=== PATIENT | female | born 1975 | race Two or more races ===

== ENCOUNTER 2017-07-30 08:08 | Day surgery (SDC) | payer BC ==
[2017-07-30] MEDS ORDERED: FAMOTIDINE 20 MG TAB PO ONE ×2 (08:12→08:47)
[2017-07-30] MEDS ORDERED: diphenhydrAMINE 25 MG CAP PO ONE ×3 (08:12→08:47)
[2017-07-30] MEDS ORDERED: NS 1,000 ML IV ONE (08:12)
[2017-07-30] MEDS ORDERED: ASPIRIN EC 325 MG TAB PO ONE ×3 (08:12→08:47)
[2017-07-30] MEDS ORDERED: DIAZEPAM 5 MG TAB PO ONE ×2 (08:12→08:47)
--- NOTE | 2017-07-30 08:41 | CPEKG ---
Heart Rate: 71 RR Interval: 845 P-R Interval: 184 QRSD Interval: 88 QT Interval: 400 QTC Interval: 435 P [place]: 20 QRS [place]: 17 T Wave [place]: 18 EKG Severity - NORMAL ECG - EKG Impression: SINUS RHYTHM Electronically Signed By: Polo Mendoza 30-Jul-2017 10:36:31
[2017-07-30] MEDS ORDERED: DIAZEPAM 5 MG TAB ONE (08:43)
[2017-07-30] MEDS ORDERED: FAMOTIDINE 20 MG TAB ONE (08:43)
[2017-07-30] MEDS ORDERED: TEMAZEPAM 15 MG CAP PO PRN (08:47)
[2017-07-30] MEDS ORDERED: ACETAMINOPHEN 325 MG TAB PO PRN (08:47)
[2017-07-30] MEDS ORDERED: NITROGLYCERIN 0.4 MG BTL SL PRN ×2 (08:47→10:36)
--- NOTE | 2017-07-30 08:47 | PDHPUP ---
History & Physical Update H&P update statement: This history and physical update is based on an assessment of the patient which was completed after admission or registration (within 24 hours), but prior to the surgery/procedure. H&P changes: No changed noted.
--- NOTE | 2017-07-30 08:49 | PDPROPOC ---
Sedation Plan of Care Sedation Plan of Care: vital signs stable, mental status noted, patient educated of risks, benefits, alternatives, patient can tolerate sedation ASA Classification: ASA 1 Planned drugs: fentanyl, midazolam Mallampati Score: Class 2 Mallampati Reference Image: Patient passed 3-3-2 rule?: Yes
[2017-07-30 08:54] LABS: % IMMATURE GRANULYOCYTES 0.4 % (0.0-1.1); ABSOLUTE IMMATURE GRANULOCYTES 0.05 10^3/uL (0.00-0.10); ADD DIFF? NO; ADD MORPH? NO; ADD SCAN? NO; ATYPICAL LYMPHOCYTE FLAG 10 (0-99); FRAGMENT RBC FLAG 0 (0-99); HEMATOCRIT 42.7 % (38.0-47.0); HEMOGLOBIN 13.8 g/dL (12.6-16.3); LEFT SHIFT FLG 0 (0-99); LIPEMIA HEMOLYSIS FLAG 80 (0-99); MEAN CELL HEMOGLOBIN 28.7 pg (27.9-34.1); MEAN CELL HEMOGLOBIN CONCENTR. 32.3 g/dL (32.4-36.7); MEAN CELL VOLUME 88.8 fL (81.5-99.8); MEAN PLATELET VOLUME 11.4 fL (8.7-11.7); PLATELET CLUMPS FLAG 20 (0-99); PLATELET COUNT 325 10^3/uL (150-400); RED BLOOD CELL COUNT 4.81 10^6/uL (4.18-5.33); RED CELL DISTRIBUTION WIDTH 14.4 % (11.5-15.2)
[2017-07-30] MEDS ORDERED: NS 1,000 ML IV SCH (09:00)
[2017-07-30 09:04] LABS: INR 1.06 (0.83-1.16); PROTIME(PATIENT) 13.7 SEC (12.0-15.0)
[2017-07-30 09:05] LABS: APTT 28.1 SEC (23.0-38.0)
[2017-07-30 09:15] LABS: ANION GAP 13 mEq/L (8-16); CALCIUM 9.1 mg/dL (8.5-10.4); CARBON DIOXIDE 18 mEq/l (22-31); CHLORIDE 107 mEq/L (97-110); CHOLESTEROL 134 mg/dL (140-200); CHOLESTEROL/HDL RATIO 1.97 RATIO (1.00-4.44); CREATININE 0.7 mg/dL (0.6-1.0); GLOMERULAR FILTRATION RATE > 60; GLUCOSE 102 mg/dL (70-100); HIGH DENSITY LIPOPROTEIN 68 mg/dL (40-95); LDL/HDL RATIO 0.57 RATIO (1.00-3.22); LOW DENSITY LIPOPROTEIN 39 mg/dL (70-100); MAGNESIUM 1.7 mg/dL (1.6-2.3); NON-HIGH DENSITY LIPOPROTEIN 66 mg/dL (90-129); SODIUM 138 mEq/L (134-144); SPECIMEN HEMOLYSIS 125; TRIGLYCERIDE 135 mg/dL (35-135); VERY LOW DENSITY LIPOPROTEINS 27 mg/dL (8-25)
[2017-07-30] MEDS ORDERED: LIDOCAINE 1% 300 MG/30 ML SDV ONE (09:30)
[2017-07-30] MEDS ORDERED: fentaNYL 100 MCG/2 ML INJ ONE (09:31)
[2017-07-30] MEDS ORDERED: IOPAMIDOL (ISOVUE-370) 150 ML BTL IV ONE (09:31)
[2017-07-30] MEDS ORDERED: MIDAZOLAM 2 MG/2 ML VIAL ONE (09:31)
[2017-07-30] MEDS ORDERED: ATROPINE SULFATE 1 MG/10 ML SYR IVP PRN (10:36)
[2017-07-30] MEDS ORDERED: ONDANSETRON 4 MG/2 ML VIAL IVP PRN (10:36)
[2017-07-30] MEDS ORDERED: HYDROCODONE/APAP 5/325 TAB PO PRN (10:36)
[2017-07-30] MEDS ORDERED: OXYCODONE/APAP 5/325 TAB PO PRN (10:36)
--- NOTE | 2017-07-30 10:44 | PDDXCAT ---
Diagnostic Cath Note - . Date: 07/30/17 Stair Builder: Reji Indication: High-risk criteria on noninvasive testing (choose option below) High-risk criteria on non-invasive testing: high-risk treadmill score (score<=- 11) - Procedure Access: right groin Procedure: left heart catheterization, coronary angiography, left ventriculogram - Materials Left Heart Cath size: 6F Left Heart Cath materials: standard multipack (JL4, JR4, pigtail), JL3.5 - Findings-Left Heart Catheterization LM: Short with bifurcation into the LAD and LCX. No critical CAD was noted. LAD: Medium diameter vessel. Early principal diagonal (equal in magnitude to the take off from the LAD) with no appreciable CAD to either. Bridging was noted to the mid/middistal LAD. Not flow limiting. LCX: Large caliber proximal vessel with transition of diameter into the first OM (branch distally). Mid and distal LCX with small caliber diameter. No luminal irregularities were noted to LCX or OM system. Likely codominant LCX/ RCA system. RCA: Medium diameter vessel. No luminal irregularities were noted. Medium sized PDA system. EDP: 26 mm Hg LVEF: >75% Wall motion: Grossly normal. Hyperdynamic Complications: none Estimated blood loss: <50ml Closure method: manual pressure Assessment: Patient is a 42 y/o female with history of HTN and Obesity, with abnormal ETT. No critical lesions were noted on angiography. Hyperdynamic LV function. Normal wall motion. Plan: Aggressive HTN management is needed. would continue annual assessment of cholesterol and LFTs. weight loss with diet and regular exercise. follow up with cardiology in the outpatient setting.
[2017-07-30] MEDS ORDERED: NEBIVOLOL HCL 5 MG TAB PO ONE (11:00)
== END 2017-07-30 18:31 | disposition home or self-care (01) ==
LOC: FCATH 08:08
PROVIDERS: ATTEND Internal Medicine Cardiovascular Disease
PROC: 4A023N7 Measurement of Cardiac Sampling and Pressure, Left Heart, Percutaneous Approach (ICD-10-PCS; principal; 2017-07-30)
PROC: B2151ZZ Fluoroscopy of Left Heart using Low Osmolar Contrast (ICD-10-PCS; principal; 2017-07-30)
PROC: B2111ZZ Fluoroscopy of Multiple Coronary Arteries using Low Osmolar Contrast (ICD-10-PCS; principal; 2017-07-30)
DX: R93.1 Abnormal findings on diagnostic imaging of heart and coronary circulation (principal); I10 Essential (primary) hypertension; E66.9 Obesity, unspecified
CPT/HCPCS: J0461; J1644; J2250; J3010; Q9967